=== PATIENT | female | born 1955 | race Caucasian/White ===

== ENCOUNTER → 2016-07-10 | Outpatient (CLI) | payer MEDICARE, OTHER ==
[~2016-07-10] MED LIST: ALBUTEROL17 GM INH; AMITRYPTYLINE; AMLODIPINE BESYL5 MG; ANTIVERT; ARTHRITIS MED; ASPIRIN PO; ATIVAN PO; ATIVAN0.5 M1 PO; ATIVAN0.5 MG PO; AUGMENTIN875 MG; CELEBREX PO; CELEXA PO; CLARITIN10 M2 PO; DOXYCYCLINE HY100 M1; FLEXERIL PO; FLEXERIL10 MG PO; FLONASE16 GM; HYDROCODON-ACE1 EA11; HYDROCODON-ACE1 EAC4 PO; HYDROCODON-ACE1 EAC5 PO; IBUPROFEN800 MG PO; INDOMETHACIN PO; KLONOPIN PO; LORAZEPAM0.5 MG; LORTAB 7.5-5001 TAB; MACROBID100 M1 PO; MOTRIN600 M1 PO; NABUMETONE PO; NEXIUM PO; NORCO 10/325 TA1 TAB PO; OMEGA-31000 M1; OMEPRAZOLE MAGN20 MG; OMEPRAZOLE20 M1 PO; PERCOCET 5-3251 TAB PO; PHENERGAN25 M1; PREVACID15 MG PO; PROZAC PO; PROZAC40 MG PO; SINGULAIR; SUDAFED30 M1; SUMATRIPTAN SU100 MG PO; SYMBICORT; TOPAMAX25 MG PO; VANCOMYCIN1.5 GM/150 IV; VITAMIN D 3 PO; XARELTO10 MG PO; ZITHROMAX PO; ZOFRAN; ZOVIRAX800 MG PO; [UNRECOGNIZED DRUG - OTHER] PO
--- NOTE | ~2016-07-10 | MY11 ---
[facility] A Service of [facility] RADIOLOGY TEXT RESULTS PATIENT: ADY COWART LOCATION: [facility] : 59 UNIT #: [id number] AGE: [address]: LUCIAN BOONE MD SEX: F ORDER DR: [id number] [facility]. [place], [place] [address] [id number] O MR#: [id number] Acc #: [id number] NAME: ADY COWART. : 1955 SEX: F STUDY DATE/TIME: 07/10/2016 12:01 UNIT: [facility] ROOM: STUDY DESCRIPTION: MY Mammogram Screening Dig Patel Attending Physician: Lucian Boone M.D. Ordering Physician: Lucian Boone M.D. Primary Care Physician: Lucian Boone M.D. MEDICAL IMAGING REPORT This report is preliminary unless electronic signature is present EXAM Bilateral digital screening mammogram with CAD 07/10/2016 HISTORY Family history of breast cancer in an aunt. No personal history of breast cancer or current complaints. COMPARISON Bilateral screening mammogram 01/21/2015, 12/15/2013, 09/01/2012. FINDINGS CC and MLO views were obtained of each breast utilizing digital technique and reviewed with an FDA-approved CAD device. Scattered fibroglandular densities are present bilaterally. A marker was placed over the left breast denoting a skin lesion. No new or suspicious nodule, architectural distortion or clustered microcalcification is seen. IMPRESSION BIRADS category 1. Negative screening mammogram. Routine screening mammogram is recommended in year. Patients over the age of 40 are entered into a reminder system with target due date for the next mammogram. A result letter will also be sent to the patient. BIRADS: 1 - Negative Dictated by... [facility] A Service [facility] RADIOLOGY TEXT RESULTS PATIENT: ADY COWART LOCATION: [facility] : 59 UNIT #: [id number] AGE: [address]: LUCIAN BOONE MD SEX: F ORDER DR: Zabrina Yusuf M.D. THIS IS AN ELECTRONICALLY VERIFIED REPORT Zabirna Yusuf M.D. at 07/10/2016 4:35 PM Leonidas TD: 07/10/2016 16:12 JOB #: [id number] MEDICAL IMAGING REPORT Page 1 of 1 COPY
== END | disposition home or self-care (01) ==
LOC: CWCC 11:45
DX: Z12.31 Encounter for screening mammogram for malignant neoplasm of breast (principal); Z80.3 Family history of malignant neoplasm of breast
CPT/HCPCS: G0202

== ENCOUNTER → 2016-07-21 | Outpatient (CLI) | payer MEDICARE, OTHER ==
--- NOTE | ~2016-07-21 | MR9 ---
[facility] A Service of [facility] & [facility] RADIOLOGY TEXT RESULTS PATIENT: ADY COWART LOCATION: [facility] : 59 UNIT #: [id number] AGE: [address]: Cuba Baxter MD SEX: F ORDER DR: [id number] [address] [address] [id number] O MR#: [id number] Acc #: [id number] NAME: ADY COWART : 1955 SEX: F STUDY DATE/TIME: 07/21/2016 13:50 UNIT: [facility] ROOM: STUDY DESCRIPTION: MR Ankle WWo Contrast Rt Attending Physician: Roberto Baxter M.D. Referring Physician: Roberto Baxter M.D. Ordering Physician: Roberto Baxter M.D. Primary Care Physician: Judy Duenas M.D. MRI CENTER REPORT This report is preliminary unless electronic signature is present. EXAM MRI of the right ankle with and without contrast HISTORY 61-year-old male status post Achilles tendon debridement and Kym excision. Patient states drainage from surgical scar four times since previous MRI. Clinical concern for osteomyelitis of the calcaneus. Right Achilles swelling. COMPARISON MRI of the right ankle with and without contrast, 04/12/2015 FINDINGS Multiplanar multiecho imaging was performed of the right ankle utilizing a high field magnet and dedicated protocol. Axial T1-weighted images were performed following IV gadolinium. 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 There is diffuse thickening within the Achilles tendon but no significant high T2 signal to suggest active inflammation. Trace amount of edema noted along the superior margins of the calcaneus at the site of surgery. Anchors also noted within the calcaneus. No abnormal enhancement identified within the calcaneus or marrow changes to suggest osteomyelitis. There is minimal enhancement of the distal Achilles tendon postcontrast which is nonspecific but could imply some very mild inflammation. There is continued diffuse thickening within the Achilles tendon most likely reflecting chronic tendinopathy. Nonspecific marrow edema noted in the posterior talus. Ankle joint fluid within normal limits. Several multiloculated cystic collections are seen extending posterior to the subtalar joint could represent small ganglion cyst. Anterior, medial and lateral ankle tendons appear normal. The ankle ligaments unremarkable. There is ossification within the deep deltoid ligament and loss of the normal striated appearance of the deep deltoid ligament most likely STS. [facility] A Service of [facility] RADIOLOGY TEXT RESULTS PATIENT: ADY COWART LOCATION: [facility] : 59 UNIT #: [id number] AGE: [address]: Cuba Baxter MD SEX: F ORDER DR: reflects the sequela of an old deep deltoid ligament sprain. Intrinsic foot musculature appears normal. IMPRESSION 1. Postsurgical changes from an apparent excision of the posterior calcaneus and Kym's deformity and repair and/or resection of the distal Achilles tendon. No findings to suggest a high-grade active tendinopathy though there is some minimal enhancement of the distal Achilles tendon postcontrast which may imply some granulation tissue or mild inflammation. No findings to suggest underlying osteomyelitis although there is a trace amount of edema along the superior aspect of the calcaneus though this is not unexpected given prior surgery. 2. Several small loculated fluid collections along the posterior aspect of the subtalar joint may represent small ganglion cyst. 3. Suspected chronic deep deltoid ligament sprain. Please note findings are essentially unchanged when compared to the patient's study from 04/12/2015. Dictated by... Martell Heredia M.D. THIS IS AN ELECTRONICALLY VERIFIED REPORT Martell Heredia M.D. at 07/22/2016 3:42 PM Scooter TD: 07/22/2016 11:27 JOB #: [id number] MRI CENTER REPORT Page 1 of 1
== END | disposition home or self-care (01) ==
LOC: SMRI 07-20 13:00
DX: M67.88 Other specified disorders of synovium and tendon, other site (principal); M92.61 Juvenile osteochondrosis of tarsus, right ankle; M79.9 Soft tissue disorder, unspecified; Z98.890 Other specified postprocedural states
CPT/HCPCS: 73723; A9581